=== PATIENT | female | born 1965 | race Two or more races ===

== ENCOUNTER 2020-08-05 10:39 | Outpatient (CLI) | payer BC ==
[2020-08-05] MEDS ORDERED: OMNIPAQUE 350 MG/ML, 100ML BOTTLE ONE (11:52)
== END 2020-08-05 23:59 | disposition home or self-care (01) ==
LOC: CT 10:39
DX: K35.80 Unspecified acute appendicitis (principal)
CPT/HCPCS: 74177; Q9967

== ENCOUNTER 2020-08-05 13:23 | Day surgery (SDC) | payer BC ==
[~2020-08-05] VITALS: Ht 149.9 cm; Wt 60.9 kg
[2020-08-05] MEDS ORDERED: MORPHINE SULFATE 4 MG/ML, 1ML IVPush PRN ×2 (14:00→17:30)
[2020-08-05] MEDS ORDERED: CEFOTETAN PMX 2GM/50ML 50 ML IVPB ONE (14:00)
[2020-08-05] MEDS ORDERED: ONDANSETRON 2MG/ML, 2ML IVPush ONE (14:00)
[2020-08-05] MEDS ORDERED: SODIUM CHLORIDE FLUSH 10ML SYR IVF ONE (14:00)
[2020-08-05] MEDS ORDERED: SODIUM CHLORIDE 0.9% 1,000ML IVBOLUS ONE (14:00)
[2020-08-05] MEDS ORDERED: PLEASE ENTER HEIGHT AND WEIGHT MC SCH (14:00)
[2020-08-05] MEDS ORDERED: ONDANSETRON 2MG/ML, 2ML ONE ×3 (14:04→16:00)
[2020-08-05] MEDS ORDERED: MORPHINE SULFATE 4 MG/ML, 1ML ONE (14:04)
--- NOTE | 2020-08-05 14:11 | NUR ---
SO AT BEDSIDE FOR SUPPORT. NO NEEDS AT THIS TIME
[2020-08-05 14:22] LABS: BASOPHILS % (AUTO) 1 % (0-1); EOSINOPHILS % (AUTO) 0 % (1-7); LYMPHOCYTES % (AUTO) 11 % (22-44); MEAN CORPUSCULAR HEMOGLOBIN 29.9 pg (27.0-34.8); MEAN CORPUSCULAR HGB CONC 34.2 g/dL (32.4-35.8); MEAN PLATELET VOLUME 7.2 fL (7.4-10.4); MONOCYTES % (AUTO) 5 % (2-9); NEUTROPHILS % (AUTO) 83 % (42-75); PLATELET COUNT 292 x10^3/uL (130-400); RED CELL DISTRIBUTION WIDTH 13.7 % (9.6-15.2)
[2020-08-05 14:24] LABS: MD NO
[2020-08-05] MEDS ORDERED: SODIUM CHLORIDE FLUSH 10ML SYR IVF PRN (14:30)
[2020-08-05 14:32] LABS: ALANINE AMINOTRANSFERASE 35 U/L (12-78); ALBUMIN 3.4 g/dL (3.4-5.0); ANION GAP 5 mmol/L (5-15); CALCIUM 8.9 mg/dL (8.5-10.1); CHLORIDE 107 mmol/L (98-107); CREATININE 0.78 mg/dL (0.55-1.02)
[2020-08-05 14:34] LABS: ALKALINE PHOSPHATASE 88 U/L (45-117); BILIRUBIN,TOTAL 1.6 mg/dL (0.2-1.0); TOTAL PROTEIN 7.4 g/dL (6.4-8.2)
--- NOTE | 2020-08-05 14:56 | NUR ---
TASK RN: PT RESTING ON GURNEY. NADN. ALEJANDRA. AWARE OF POC FOR ADMIT TO OR FOR APPENDICITIS. PT VERBALIZES UNDERSTANDING.
--- NOTE | 2020-08-05 15:18 | NUR ---
RPT TO OR
[2020-08-05] MEDS ORDERED: BUPIVACAINE/PF 0.25% ONE (15:19)
[2020-08-05] MEDS ORDERED: EPINEPHRINE 1 MG/ML, 1ML ONE (15:19)
[2020-08-05] MEDS ORDERED: FENTANYL PF 250 MCG/5ML ONE (15:20)
[2020-08-05] MEDS ORDERED: MIDAZOLAM 1 MG/ML, 2ML ONE (15:20)
--- NOTE | 2020-08-05 15:25 | NUR ---
PT TO OR
[2020-08-05] MEDS ORDERED: DEXAMETHASONE 4 MG/ML, 1ML ONE (15:41)
[2020-08-05] MEDS ORDERED: KETOROLAC 30 MG/1 ML ONE (15:41)
[2020-08-05] MEDS ORDERED: CEFOTETAN 1 GM ONE (15:51)
[2020-08-05] MEDS ORDERED: ROCURONIUM 10MG/ML,5ML ONE (16:00)
[2020-08-05] MEDS ORDERED: PROPOFOL 10 MG/ML, 20ML ONE (16:00)
[2020-08-05] MEDS ORDERED: SUGAMMADEX 200 MG/2 ML IVPush ONE (16:00)
[2020-08-05] MEDS ORDERED: HYDROmorphone 1 MG/ML, 1ML INJ IVPush PRN (16:30)
[2020-08-05] MEDS ORDERED: LABETALOL 5MG/ML, 20ML IV PRN (16:30)
[2020-08-05] MEDS ORDERED: hydrALAzine 20 MG/ML, 1ML IV PRN (16:30)
[2020-08-05] MEDS ORDERED: OXYcodone 5 MG/5 ML ORAL.SOL UDC PO PRN (16:30)
[2020-08-05] MEDS ORDERED: EPHEDRINE 50 MG/ML, 1ML IVPush PRN (16:30)
[2020-08-05] MEDS ORDERED: FENTANYL PF 100 MCG/2ML IV PRN (16:30)
[2020-08-05] MEDS ORDERED: PROMETHAZINE 25 MG/ML, 1ML IVPush PRN (16:30)
[2020-08-05] MEDS ORDERED: PROMETHAZINE 12.5 MG SUPP PR PRN (16:30)
[2020-08-05] MEDS ORDERED: MIDAZOLAM 1 MG/ML, 2ML IV PRN (16:30)
[2020-08-05] MEDS ORDERED: ALBUTEROL SULFATE 2.5 MG/3 ML NPPB PRN (16:30)
[2020-08-05] MEDS ORDERED: DIPHENHYDRAMINE 50 MG/ML, 1ML IVPush PRN (16:30)
[2020-08-05] MEDS ORDERED: DIAZEPAM 5 MG/ML, 2ML IVPush PRN (16:30)
[2020-08-05] MEDS ORDERED: MEPERIDINE/PF 25MG/0.5ML IVPush PRN (16:30)
[2020-08-05] MEDS ORDERED: ONDANSETRON 2MG/ML, 2ML IVPush PRN ×2 (16:30→17:30)
[2020-08-05] MEDS ORDERED: OXYcodone 5 MG/5 ML ORAL.SOL UDC ONE (16:38)
[2020-08-05] MEDS ORDERED: HYDROcodone/APAP 5/325 TABLET PO PRN (17:30)
[2020-08-05 20:04] VITALS: BP 87/54
== END 2020-08-05 21:57 | disposition home or self-care (01) ==
LOC: EDSTATUS 13:29 → ED 14:06 → OUT 14:06 → UNDOADMIN 14:07 → EDIP 14:07 → 4NE 17:12 → EDIP 17:12 → OUT 21:57 → UNDODISIN 22:07
PROVIDERS: ATTEND Emergency Medicine
DX: K35.30 Acute appendicitis with localized peritonitis, without perforation or gangrene (principal); Z20.822 Contact with and (suspected) exposure to COVID-19
CPT/HCPCS: 36415; 44970; 80053; 85025; 87635; 88304; 96374; 99285; C1729; J0171; J1100; J1885; J2250; J2270; J2405; J2704; J3010; J7030; G0378